=== PATIENT | male | born 1955 | race Caucasian/White ===

== ENCOUNTER 2017-11-20 23:50 | Emergency (ER) | payer SELFPAY ==
[~2017-11-20] VITALS: Ht 180.3 cm; Wt 83.6 kg
[2017-11-21] MEDS ORDERED: ONDANSETRON HCL 4MG/2ML VIAL IV NR (00:08)
[2017-11-21] MEDS ORDERED: FAMOTIDINE 20MG/2ML VIAL IV NR (00:15)
[2017-11-21 00:30] LABS: BASOPHILS % 0.4 % (0.0-2.0); EOSINOPHILS % 2.5 % (0.0-5.0); HEMATOCRIT. 41.5 % (42.0-52.0); HEMOGLOBIN. 14.7 g/dL (14.0-18.0); LYMPHOCYTES % 43.5 % (20.0-50.0); MEAN CORPUSCULAR HEMOGLOBIN 30.4 pg (28.0-32.0); MEAN CORPUSCULAR VOLUME 85.8 fL (80.0-94.0); MEAN PLATELET VOLUME 9.5 fl (7.4-10.4); MONOCYTES % 5.5 % (2.0-8.0); NEUTROPHILS % 48.1 % (40.0-76.0); PLATELET 259 x1000/uL (130-400); RED BLOOD CELL COUNT 4.83 mill/uL (4.7-6.1); RED CELL DISTRIBUTION WIDTH 12.4 % (11.6-14.6)
[2017-11-21 00:36] LABS: CHLORIDE 101 mEq/L (98-107)
[2017-11-21 00:40] LABS: ETHANOL BLOOD 86 mg/dL
[2017-11-21] MEDS ORDERED: METF500T4 PO (00:55)
[2017-11-21] MEDS ORDERED: DOCU-150 PO (00:55)
[2017-11-21] MEDS ORDERED: GEMF600T3 PO (00:55)
[2017-11-21] MEDS ORDERED: FERR325T6 PO (00:56)
[2017-11-21] MEDS ORDERED: ASPI-1159 PO (00:58)
[2017-11-21] MEDS ORDERED: GLIP10TA10 PO (00:58)
[2017-11-21] MEDS ORDERED: LISI-186 PO (00:58)
[2017-11-21 04:01] VITALS: BP 129/78
== END 2017-11-21 04:02 | disposition home or self-care (01) ==
LOC: ER 11-21 00:02
DX: K29.20 Alcoholic gastritis without bleeding (principal); F10.229 Alcohol dependence with intoxication, unspecified; E11.9 Type 2 diabetes mellitus without complications; I10 Essential (primary) hypertension; E78.00 Pure hypercholesterolemia, unspecified; Y90.4 Blood alcohol level of 80-99 mg/100 ml; F12.10 Cannabis abuse, uncomplicated; Z79.84 Long term (current) use of oral hypoglycemic drugs; Z79.82 Long term (current) use of aspirin
CPT/HCPCS: 36415; 71045; 80053; 85025; 93005; 96374; 96375; 99285; G0482; J2405; J3490; Z7610